=== PATIENT | female | born 1980 | race Caucasian/White ===

== ENCOUNTER 2016-11-20 14:49 | Emergency (ER) | payer OTHER ==
[~2016-11-20] VITALS: Ht 162.6 cm; Wt 79.8 kg
[2016-11-20 17:00] VITALS: BP 135/86
== END 2016-11-20 17:01 | disposition home or self-care (01) ==
LOC: ED 14:49
DX: J02.9 Acute pharyngitis, unspecified (principal); I10 Essential (primary) hypertension; E78.00 Pure hypercholesterolemia, unspecified; E03.9 Hypothyroidism, unspecified
CPT/HCPCS: J1885

== ENCOUNTER 2017-07-26 12:17 | Emergency (ER) | payer OTHER ==
[~2017-07-26] VITALS: Ht 162.6 cm; Wt 77.1 kg
[2017-07-26 12:21] VITALS: BP 153/64
== END 2017-07-26 13:17 | disposition home or self-care (01) ==
LOC: ED 12:17
DX: E07.89 Other specified disorders of thyroid (principal)

== ENCOUNTER 2018-11-28 09:29 | Emergency (ER) | payer OTHER ==
[~2018-11-28] VITALS: Ht 162.6 cm; Wt 65.8 kg
[2018-11-28 09:39] VITALS: Ht 162.6 cm; Wt 65.8 kg
[2018-11-28 12:35] VITALS: BP 142/84
== END 2018-11-28 12:35 | disposition home or self-care (01) ==
LOC: ED 09:29
DX: S40.022A Contusion of left upper arm, initial encounter (principal); S40.021A Contusion of right upper arm, initial encounter; S30.1XXA Contusion of abdominal wall, initial encounter; S00.531A Contusion of lip, initial encounter; S09.8XXA Other specified injuries of head, initial encounter; I10 Essential (primary) hypertension; E78.00 Pure hypercholesterolemia, unspecified; E03.9 Hypothyroidism, unspecified; Z90.49 Acquired absence of other specified parts of digestive tract; Z98.890 Other specified postprocedural states; Y04.8XXA Assault by other bodily force, initial encounter; Y93.89 Activity, other specified; Y92.89 Other specified places as the place of occurrence of the external cause; Y99.8 Other external cause status

== ENCOUNTER 2018-12-11 04:30 | Emergency (ER) | payer OTHER ==
[~2018-12-11] VITALS: Ht 162.6 cm; Wt 65.8 kg
[2018-12-11 04:34] VITALS: Ht 162.6 cm; Wt 65.8 kg
[2018-12-11 06:11] VITALS: BP 122/86
== END 2018-12-11 06:11 | disposition home or self-care (01) ==
LOC: ED 04:30
DX: T19.2XXA Foreign body in vulva and vagina, initial encounter (principal); I10 Essential (primary) hypertension; E78.00 Pure hypercholesterolemia, unspecified; E03.9 Hypothyroidism, unspecified; Z90.49 Acquired absence of other specified parts of digestive tract; Z98.890 Other specified postprocedural states; X58.XXXA Exposure to other specified factors, initial encounter; Y93.89 Activity, other specified; Y92.89 Other specified places as the place of occurrence of the external cause; Y99.8 Other external cause status

== ENCOUNTER 2019-06-30 19:17 | Emergency (ER) | payer OTHER ==
[~2019-06-30] VITALS: Ht 162.6 cm; Wt 71.7 kg
[2019-06-30 19:24] VITALS: Ht 162.6 cm; Wt 71.7 kg
[2019-06-30 23:38] VITALS: BP 137/95
== END 2019-06-30 23:54 | disposition home or self-care (01) ==
LOC: ED 19:17
DX: S16.1XXA Strain of muscle, fascia and tendon at neck level, initial encounter (principal); S00.83XA Contusion of other part of head, initial encounter; S80.02XA Contusion of left knee, initial encounter; S80.01XA Contusion of right knee, initial encounter; S20.212A Contusion of left front wall of thorax, initial encounter; S20.211A Contusion of right front wall of thorax, initial encounter; S40.012A Contusion of left shoulder, initial encounter; S40.011A Contusion of right shoulder, initial encounter; R11.2 Nausea with vomiting, unspecified; I10 Essential (primary) hypertension; E78.00 Pure hypercholesterolemia, unspecified; E05.90 Thyrotoxicosis, unspecified without thyrotoxic crisis or storm; Z90.49 Acquired absence of other specified parts of digestive tract; Z98.890 Other specified postprocedural states; Y04.0XXA Assault by unarmed brawl or fight, initial encounter; Y93.89 Activity, other specified; Y92.89 Other specified places as the place of occurrence of the external cause; Y99.8 Other external cause status
CPT/HCPCS: J1885